=== PATIENT | male | born 1930 | race Caucasian/White ===

== ENCOUNTER 2018-10-18 17:46 | Inpatient (IN) | payer MEDICARE, MEDICAID ==
[~2018-10-18] VITALS: Ht 165.1 cm; Wt 74.8 kg
--- NOTE | 2018-10-18 17:50 | NUR ---
PT BIB [facility]IVATE [facility] TO ER BED 16. HERE FOR [facility] ADMISSION. ALREADY ON A 5150 FOR GD AND DTO. PER REPORT, PT IS REFUSING HIS MEDICATION AND IS THROWING STUFFS AT STAFF. VSS. VIETNAMESE SPEAKING. STABLE VITALS. AWAITING MD CROWLEY.
--- NOTE | 2018-10-18 18:40 | NUR ---
DR TORIBIO AT BEDSIDE FOR EVAL.
--- NOTE | 2018-10-18 18:47 | NUR ---
REAL ESTATE ADMINISTRATOR AT BEDSIDE FOR BLOOD DRAW.
--- NOTE | 2018-10-18 18:50 | NUR ---
PT UNABLE TO PROVIDE URINE SAMPLE AT THIS TIME.
[2018-10-18 18:53] LABS: HEMATOCRIT 25 % (39-51); LYMPHOCYTES # (AUTO) 1.2 /CMM (0.8-4.8)
[2018-10-18 18:56] LABS: BASOPHILS % (AUTO) 0.4 % (0.0-2.0); EOSINOPHILS % (AUTO) 1.3 % (0.0-6.0); MEAN CORPUSCULAR HGB CONC 32 g/dl (31.0-36.0); MEAN CORPUSCULAR VOLUME 78 fL (80-96); MONOCYTES % (AUTO) 12.5 % (2.0-12.0); NEUTROPHILS # (AUTO) 5.7 /CMM (1.8-8.9); NEUTROPHILS % (AUTO) 70.8 % (43.0-81.0); PLATELET COUNT (AUTO) 450 /CMM (150-450); RED BLOOD CELL COUNT(AUTO) 3.24 MIL/uL (4.5-6.0)
[2018-10-18 19:01] LABS: CALCIUM, SERUM 8.4 mg/dL (8.5-10.1); CARBON DIOXIDE 25 mmol/L (21-32); CHLORIDE 107 mmol/L (98-107); CREATININE 1.4 mg/dL (0.6-1.3); GLUCOSE 123 mg/dL (74-106); POTASSIUM 4.6 mmol/L (3.5-5.1); SODIUM SERUM 138 mmol/L (136-145); UREA NITROGEN, BLOOD 35 mg/dL (7-18)
[2018-10-18 19:08] LABS: ALANINE AMINOTRANSFERASE 15 U/L (12-78); ALBUMIN 2.9 g/dL (3.4-5.0); ALCOHOL, BLOOD < 3 mg/dL (0-0); ALKALINE PHOSPHATASE 85 U/L (46-116); ASPARTATE AMINOTRANSFERASE 13 U/L (15-37); BILIRUBIN,TOTAL 0.1 mg/dL (0.2-1.0)
[2018-10-18 19:09] LABS: ACETAMINOPHEN 0 ug/ml (10-30); SALICYLATE 1.6 mg/dL (2.8-20.0)
[2018-10-18 19:25] LABS: APPEARANCE,URINE Clear (CLEAR); BILIRUBIN,URINE Negative (NEGATIVE); BLOOD, URINE Negative Ery/uL (NEGATIVE); COLOR,URINE Yellow (YELLOW); KETONES,URINE Negative (NEGATIVE); LEUKOCYTE ESTERASE ,URINE Negative (NEGATIVE); NITRITE, URINE Negative (NEGATIVE); PH,URINE 5.5 (5.0-8.0); PROTEIN,URINE Trace mg/dl (NEGATIVE); UGLUCOSE Negative (NEGATIVE); UROBILINOGEN,URINE 0.2 EU/dL (0.2)
[2018-10-18 19:29] LABS: BAND % (MANUAL) 19 % (0.0-5.0); LYMPHOCYTES % (MANUAL) 17 % (16-48); MONOCYTES % (MANUAL) 14 % (0-11.0); NEUTROPHILS % (MANUAL) 50 (42-76)
--- NOTE | 2018-10-18 19:29 | NUR ---
REPORT GIVEN TO YESSI CHÁVEZ FOR PRIMO.
[2018-10-18 19:39] LABS: BACTERIA,URINE Rare /HPF (None Seen); RBC,URINE 0-2 /HPF (0-2); SQUAMOUS EPITHELIAL CELL,UR Few /HPF (None Seen); WBC,URINE 0-2 /HPF (0-3)
--- NOTE | 2018-10-18 20:11 | NUR ---
Pt is assigned to 220-A.
--- NOTE | 2018-10-18 21:11 | NUR ---
REPORT GIVEN TO NURSE SALAS ON BEHALF OF PRIMARY NURSE YESSI.
--- NOTE | 2018-10-18 21:15 | NUR ---
GPS/RN-NOTES ADMITTED AN 88-Y/O MALE FROM [facility]. ADMITTED ON 5150 FOR DTS/GD. PER HOLD PATIENT HAS BEEN ACTING OUT AGGRESSIVELY, THROWING OBJECTS AND VERBALLY ABUSIVE TOWARDS STAFF AND REFUSING TO COOPERATE WITH CAREGIVERS. UPON FACE TO FACE ASSESSMENT, PT IS SITTING UP IN BED, AWAKE, A/OX2, CALM, COOPERATIVE WITH CARE. SPEAKS COLOMBIAN, NO APPARENT DISTRESS NOTED, DENIED SUICIDE IDEATIONS AND HOMICIDAL IDEATIONS AT THIS TIME. PATIENT COMPLAINS OF PAIN ON BILATERAL KNEES, 3/10 AND REQUESTED FOR ACETAMINOPHEN. TYLENOL GIVEN ORDERED. PATIENT IS UNDER THE PSYCHIATRIC CARE OF DR. SWEENEY AND MEDICAL CARE OF SAAD RIDER. MED RECON DONE. PATIENT BELONGINGS WERE INVENTORIED AND CHECKED FOR CONTRABAND. SKIN ASSESSMENT DONE. SKIN INTACT. PATIENT EDUCATED ON THE USE OF THE CALL GEORGE, VERBALIZED UNDERSTANDING. ALL NEEDS ATTENDED AND MET. KEPT COMFORTABLE. SAFETY AND FALL PRECAUTIONS IMPLEMENTED AND OBSERVED. WILL CONTINUE TO MONITOR CLOSELY FOR PATIENT'S SAFETY AND BEHAVIOR.
[2018-10-18 21:30] VITALS: BP 155/84
[2018-10-18] MEDS ORDERED: MAG HYDROX/AL HYDROX/SIMETH 30 ML UDC PO PRN (22:00)
[2018-10-18] MEDS ORDERED: MAGNESIUM HYDROXIDE 30 ML UDC PO PRN (22:00)
[2018-10-18] MEDS ORDERED: TEMAZEPAM 7.5 MG CAPSULE PO PRN (22:00)
[2018-10-18] MEDS ORDERED: DEXT15DR6 EACHEYE (22:02)
[2018-10-18] MEDS: ACETAMINOPHEN 325 MG TABLET PO PRN (22:10)
[2018-10-18] MEDS ORDERED: DIVA500T2 PO (22:12)
[2018-10-18] MEDS ORDERED: DOCU100C36 PO (22:13)
[2018-10-18] MEDS ORDERED: FAMO20TA8 PO (22:15)
[2018-10-18] MEDS ORDERED: FERR325T23 PO (22:18)
[2018-10-18] MEDS ORDERED: MELA3TAB PO (22:20)
[2018-10-18] MEDS ORDERED: METO-356 PO (22:21)
[2018-10-18] MEDS: LORAZEPAM 0.5 MG TABLET PO PRN (22:23)
[2018-10-18] MEDS ORDERED: MULT1TAB73 PO (22:24)
[2018-10-18] MEDS ORDERED: THIA500T PO (22:29)
[2018-10-18] MEDS ORDERED: CHOL200026 PO (22:39)
[2018-10-18] MEDS ORDERED: OLAN2.5T3 PO ×2 (22:41→22:43)
[2018-10-19 07:43] LABS: CREATININE 1.4 mg/dL (0.6-1.3)
[2018-10-19 08:00] VITALS: BP 124/64
[2018-10-19] MEDS: MULTIVITAMINS,THERAGRAN 1 UDTAB TABLET PO SCH (08:52)
[2018-10-19] MEDS: FAMOTIDINE (20 MG) 20 MG TABLET PO SCH (08:52)
[2018-10-19] MEDS: FERROUS SULFATE (325 MG) 325 MG/TAB TABLET PO SCH ×3 (08:52→16:25)
[2018-10-19] MEDS: DIVALPROEX SODIUM 500 MG TABLET.DR PO SCH ×3 (08:52→17:14)
[2018-10-19] MEDS: THIAMINE HCL 100 MG TABLET PO SCH (08:52)
[2018-10-19] MEDS: METOPROLOL SUCCINATE 25 MG TAB.SR.24H PO SCH (08:52)
[2018-10-19] MEDS: DOCUSATE SODIUM 100 MG CAPSULE PO SCH (08:52)
[2018-10-19] MEDS: POLYVINYL ALCOHOL 15 ML BOTTLE EACHEYE SCH ×3 (08:54→16:28)
--- NOTE | 2018-10-19 09:53 | NUR ---
STU conducted the pt's psychosocial assessment with a Greek speaking SPRAYER OPERATOR present, Susie, because the pt is Greek speaking only and Susie translated for the SW and the pt.
--- NOTE | 2018-10-19 09:54 | NUR ---
STU called the pt's daughter, Isabela ([phone]), and discussed the pt's initial discharge plan. She stated that she is unsure if she wants the pt to return to [facility] and stated that the best facility the pt was ever in was [facility]. She stated that she would prefer if the pt could be admitted there.
[2018-10-19 10:54] LABS: CHOLESTEROL 113 mg/dL (<200); HDL CHOLESTEROL 32 mg/dL (40-60); LDL 67 mg/dL (0-99); TRIGLYCERIDES 115 mg/dL (30-150)
--- NOTE | 2018-10-19 14:30 | NUR ---
Initial Discharge Plan: Pt currently resides at [facility] located at [address] [place] [address]; ([phone]). Per pt, he was disoriented and was unable to state whether or not he wants to return. Pt's daughter, Isabela ([phone]), stated that she preferred [facility]. SW will work with the pt, the family, and the MD regarding appropriate discharge planning. SW will form a safe and proper discharge.
[2018-10-19 16:00] VITALS: BP 124/63
--- NOTE | 2018-10-19 19:29 | NUR ---
RECEIVED AWAKE, ALERT, INTERACTS WHEN ENGAGED, NO AGGRESSIVE BEHAVIOR NOTED. CALM, COOPERATIVE. GOOD MOOD. WILL CONTINUE TO MOITOR Q 15 MINS. TO MAINTAIN SAFETY.
[2018-10-19 20:00] VITALS: BP 153/60
[2018-10-19] MEDS: LORAZEPAM 0.5 MG TABLET PO PRN (20:17)
[2018-10-19] MEDS: QUETIAPINE FUMARATE 25 MG TABLET PO SCH (22:03)
[2018-10-20 07:02] LABS: BASOPHILS % (AUTO) 0.5 % (0.0-2.0); EOSINOPHILS % (AUTO) 3.4 % (0.0-6.0); HEMATOCRIT 24 % (39-51); HEMOGLOBIN 7.4 g/dL (13.5-17.5); LYMPHOCYTES # (AUTO) 2.7 /CMM (0.8-4.8); LYMPHOCYTES % (AUTO) 33.4 % (20.0-44.0); MEAN CORPUSCULAR HGB CONC 32 g/dl (31.0-36.0); MEAN CORPUSCULAR VOLUME 77 fL (80-96); MONOCYTES # (AUTO) 1.1 /CMM (0.1-1.30); MONOCYTES % (AUTO) 13.4 % (2.0-12.0); NEUTROPHILS % (AUTO) 49.3 % (43.0-81.0); PLATELET COUNT (AUTO) 396 /CMM (150-450); RED BLOOD CELL COUNT(AUTO) 3.04 MIL/uL (4.5-6.0); WHITE BLOOD COUNT (AUTO) 8.1 K/uL (4.3-11.0)
[2018-10-20] MEDS: FAMOTIDINE (20 MG) 20 MG TABLET PO SCH (07:40)
[2018-10-20 07:43] LABS: ALANINE AMINOTRANSFERASE 12 U/L (12-78); ALBUMIN 2.4 g/dL (3.4-5.0); ALKALINE PHOSPHATASE 63 U/L (46-116); ASPARTATE AMINOTRANSFERASE 15 U/L (15-37); BILIRUBIN,TOTAL 0.2 mg/dL (0.2-1.0); CALCIUM, SERUM 8.3 mg/dL (8.5-10.1); CARBON DIOXIDE 20 mmol/L (21-32); CHLORIDE 111 mmol/L (98-107); CREATININE 1.2 mg/dL (0.6-1.3); GLUCOSE 85 mg/dL (74-106); POTASSIUM 4.3 mmol/L (3.5-5.1); SODIUM SERUM 142 mmol/L (136-145); TOTAL PROTEIN, SERUM 6.2 g/dL (6.4-8.2); UREA NITROGEN, BLOOD 26 mg/dL (7-18)
[2018-10-20 08:00] VITALS: BP 129/59
[2018-10-20] MEDS: POLYVINYL ALCOHOL 15 ML BOTTLE EACHEYE SCH ×3 (08:02→17:00)
[2018-10-20] MEDS: THIAMINE HCL 100 MG TABLET PO SCH (08:02)
[2018-10-20] MEDS: DIVALPROEX SODIUM 500 MG TABLET.DR PO SCH ×3 (08:02→17:11)
[2018-10-20] MEDS: FERROUS SULFATE (325 MG) 325 MG/TAB TABLET PO SCH ×3 (08:02→17:11)
[2018-10-20] MEDS: MULTIVITAMINS,THERAGRAN 1 UDTAB TABLET PO SCH (08:02)
[2018-10-20] MEDS: DOCUSATE SODIUM 100 MG CAPSULE PO SCH (08:02)
[2018-10-20] MEDS: METOPROLOL SUCCINATE 25 MG TAB.SR.24H PO SCH (08:06)
[2018-10-20] MEDS: CHOLECALCIFEROL 1,000 UNIT TABLET (VIT D3) PO SCH (08:07)
[2018-10-20] MEDS: QUETIAPINE FUMARATE 25 MG TABLET PO SCH ×3 (08:11→22:00)
[2018-10-20] MEDS: ACETAMINOPHEN 325 MG TABLET PO PRN (10:41)
--- NOTE | 2018-10-20 12:03 | NUR ---
GPS NOTES PATIENT BROUGHT TO RADIOLOGY VIA WHEELCHAIR FOR CHEST X-RAY AND CT OF HEAD W/O CONTRAST. WILL F/U RESULTS
--- NOTE | 2018-10-20 14:00 | NUR ---
GPS NOTES RESULTS OF CHEST X-RAY SHOWS RIGHT BASILAR PNA WITH PERHAPS A SMALL LEFT BASILAR INFILTRATE AND EFFUSION. CALLED [facility] FOR DR LOUIS, AWAITING FOR CALL BACK.
[2018-10-20 15:56] VITALS: BP 113/64
--- NOTE | 2018-10-20 16:03 | NUR ---
RN NOTES CALLED [facility] AGAIN AT 1600 AND SPOKE TO STRAIGHT EDGER GAIL. DR LOUIS CALLED AND INFORMED CHEST X-RAY RESULTS (PNA) AND LOW HGB 7.[address] LOUIS SAID THAT SHE WILL LOOK PT'S RESULTS ON THE COMPUTER AND WILL TAKE CARE OF IT. WILL CONTINUE TO MONITOR
[2018-10-20] MEDS: AMOX/CLAVULANATE 875 MG TABLET PO SCH (17:11)
--- NOTE | 2018-10-20 17:13 | NUR ---
GPS/RN NOTES DR LOUIS ORDERED ABT AUGMENTIN 875/125MG TAB Q 12HRS FOR PNA AND STARTED. PT FOR STOOL SPECIMEN COLLECTION FOR OCCULT BLOOD AND FOR BMP, CBC, IRON,MG AND PHOSPHORUS TOMORROW MORNING AT 0500. WILL ENDORSE TO LICENSED PHARMACIST NURSE. AND CONTINUE TO MONITOR PT'S STATUS ACCORDINGLY.
[2018-10-20 20:14] VITALS: BP 150/76
[2018-10-20] MEDS: LORAZEPAM 0.5 MG TABLET PO PRN (20:44)
--- NOTE | 2018-10-20 20:45 | NUR ---
ATIVAN 0.5 MG TAB PO GIVEN FOR ANXIETY.
--- NOTE | 2018-10-20 21:25 | NUR ---
PATIENT REFUSED NIGHT MEDICATION, OFFERED X2, STILL REFUSED.
--- NOTE | 2018-10-21 06:07 | NUR ---
NO BOWEL MOVEMENT DURING THE SHIFT, WILL ENDORSE FOR FOLLOW-UP.
--- NOTE | 2018-10-21 06:13 | NUR ---
REFUSED BLOOD DRAW. WILL COME BACK LATER.
[2018-10-21 08:00] VITALS: BP 145/59
[2018-10-21] MEDS: DIVALPROEX SODIUM 500 MG TABLET.DR PO SCH ×5 (08:00→18:00)
[2018-10-21] MEDS: FAMOTIDINE (20 MG) 20 MG TABLET PO SCH ×2 (08:58→11:54)
[2018-10-21] MEDS: AMOX/CLAVULANATE 875 MG TABLET PO SCH ×3 (08:58→21:00)
[2018-10-21] MEDS: THIAMINE HCL 100 MG TABLET PO SCH ×2 (08:58→11:52)
[2018-10-21] MEDS: FERROUS SULFATE (325 MG) 325 MG/TAB TABLET PO SCH ×5 (08:58→17:00)
[2018-10-21] MEDS: METOPROLOL SUCCINATE 25 MG TAB.SR.24H PO SCH ×2 (08:59→12:02)
[2018-10-21] MEDS: MULTIVITAMINS,THERAGRAN 1 UDTAB TABLET PO SCH ×2 (08:59→11:52)
[2018-10-21] MEDS: DOCUSATE SODIUM 100 MG CAPSULE PO SCH ×2 (08:59→11:52)
[2018-10-21] MEDS: POLYVINYL ALCOHOL 15 ML BOTTLE EACHEYE SCH ×4 (08:59→17:00)
[2018-10-21] MEDS: QUETIAPINE FUMARATE 25 MG TABLET PO SCH ×3 (09:00→21:07)
--- NOTE | 2018-10-21 09:39 | NUR ---
REFUSING AM MEDS,REFUSING AM LAB DRAW AT THIS TIME.
[2018-10-21] MEDS: ACETAMINOPHEN 325 MG TABLET PO PRN (09:45)
--- NOTE | 2018-10-21 09:46 | NUR ---
MEDICATED WITH TYLENOL FOR PAIN IN KNEES.
--- NOTE | 2018-10-21 11:30 | NUR ---
CALL OUT TO PT'S2 DAUGHTERS VIKA AND CHICO REGARDING PT STATUS,LEFT MESSAGES ON BOTH DTR'S CELL PHONES.
--- NOTE | 2018-10-21 11:45 | NUR ---
RETURN CALL FROM ESTEVAN ,STATES SHE WILL BE IN TO SEE PT. MEANWHILE PT ALLOWED LAB DRAW.HIRAL JOHNSON AT BEDSIDE.
--- NOTE | 2018-10-21 12:30 | NUR ---
AM MEDS CRUSHED AND ADDED TO CHOCOLATE PUDDING,BUT PT. STILL REFUSING MEDS,STATES HE WILL ONLY TAKE TYLENOL
[2018-10-21 12:45] LABS: BASOPHILS % (AUTO) 0.3 % (0.0-2.0); EOSINOPHILS % (AUTO) 2.1 % (0.0-6.0); HEMATOCRIT 25 % (39-51); LYMPHOCYTES # (AUTO) 2.3 /CMM (0.8-4.8); LYMPHOCYTES % (AUTO) 32.8 % (20.0-44.0); MEAN CORPUSCULAR HGB CONC 32 g/dl (31.0-36.0); MEAN CORPUSCULAR VOLUME 77 fL (80-96); MONOCYTES # (AUTO) 0.8 /CMM (0.1-1.30); MONOCYTES % (AUTO) 11.7 % (2.0-12.0); NEUTROPHILS # (AUTO) 3.7 /CMM (1.8-8.9); NEUTROPHILS % (AUTO) 53.1 % (43.0-81.0); PLATELET COUNT (AUTO) 428 /CMM (150-450); RED BLOOD CELL COUNT(AUTO) 3.25 MIL/uL (4.5-6.0); WHITE BLOOD COUNT (AUTO) 6.9 K/uL (4.3-11.0)
[2018-10-21 12:58] LABS: CALCIUM, SERUM 8.5 mg/dL (8.5-10.1); CARBON DIOXIDE 21 mmol/L (21-32); CHLORIDE 109 mmol/L (98-107); CREATININE 1.2 mg/dL (0.6-1.3); GLUCOSE 96 mg/dL (74-106); MAGNESIUM 2.1 mg/dL (1.8-2.4); PHOSPHORUS 3.9 mg/dL (2.5-4.9); POTASSIUM 4.5 mmol/L (3.5-5.1); SODIUM SERUM 142 mmol/L (136-145); UREA NITROGEN, BLOOD 23 mg/dL (7-18)
[2018-10-21 13:10] LABS: IRON, SERUM 13 ug/dl (50-175); TOTAL IRON BINDING CAPACITY 255 ug/dl (250-450)
[2018-10-21 15:45] VITALS: BP 117/65
--- NOTE | 2018-10-21 19:59 | NUR ---
FAMILY AT THE BEDSIDE, DAUGHTER SSAID IT IS OKAY TO GIVE HER FATHER'S MEDICATION AT THIS TIME. PULLED OUT NIGHT MEDS, OFFERED X2, PATIENT REFUSED, WET PRIMER POWDER BLENDER MADE AWARE.
[2018-10-21 20:00] VITALS: BP 143/79
--- NOTE | 2018-10-21 20:06 | NUR ---
C/O PAIN ON HIS KNEES, TYLENOL 650 MG TAB PO GIVEN.
[2018-10-22 08:00] VITALS: BP 145/67
[2018-10-22] MEDS: POLYVINYL ALCOHOL 15 ML BOTTLE EACHEYE SCH ×3 (09:00→17:00)
[2018-10-22] MEDS: FERROUS SULFATE (325 MG) 325 MG/TAB TABLET PO SCH ×3 (10:43→17:38)
[2018-10-22] MEDS: AMOX/CLAVULANATE 875 MG TABLET PO SCH ×2 (10:44→21:02)
[2018-10-22] MEDS: MULTIVITAMINS,THERAGRAN 1 UDTAB TABLET PO SCH (10:44)
[2018-10-22] MEDS: DOCUSATE SODIUM 100 MG CAPSULE PO SCH (10:44)
[2018-10-22] MEDS: DIVALPROEX SODIUM 500 MG TABLET.DR PO SCH ×3 (10:44→17:38)
[2018-10-22] MEDS: FAMOTIDINE (20 MG) 20 MG TABLET PO SCH (10:44)
[2018-10-22] MEDS: QUETIAPINE FUMARATE 25 MG TABLET PO SCH ×2 (10:44→21:02)
[2018-10-22] MEDS: THIAMINE HCL 100 MG TABLET PO SCH (10:44)
[2018-10-22] MEDS: METOPROLOL SUCCINATE 25 MG TAB.SR.24H PO SCH (10:45)
[2018-10-22 16:00] VITALS: BP 135/54
[2018-10-22 20:01] VITALS: BP 109/40
[2018-10-23 08:00] VITALS: BP 147/75
[2018-10-23] MEDS: DIVALPROEX SODIUM 500 MG TABLET.DR PO SCH ×3 (08:03→17:08)
[2018-10-23] MEDS: QUETIAPINE FUMARATE 25 MG TABLET PO SCH ×2 (08:03→21:32)
[2018-10-23] MEDS: FAMOTIDINE (20 MG) 20 MG TABLET PO SCH (08:03)
[2018-10-23] MEDS: FERROUS SULFATE (325 MG) 325 MG/TAB TABLET PO SCH ×3 (08:03→16:18)
[2018-10-23] MEDS: AMOX/CLAVULANATE 875 MG TABLET PO SCH ×2 (08:03→21:32)
[2018-10-23] MEDS: THIAMINE HCL 100 MG TABLET PO SCH (08:03)
[2018-10-23] MEDS: DOCUSATE SODIUM 100 MG CAPSULE PO SCH (08:03)
[2018-10-23] MEDS: MULTIVITAMINS,THERAGRAN 1 UDTAB TABLET PO SCH (08:03)
[2018-10-23] MEDS: METOPROLOL SUCCINATE 25 MG TAB.SR.24H PO SCH (08:04)
[2018-10-23] MEDS: POLYVINYL ALCOHOL 15 ML BOTTLE EACHEYE SCH ×4 (08:21→16:18)
--- NOTE | 2018-10-23 14:05 | NUR ---
STU called the pt's daughter, Isabela ([phone]), and informed her that the SW will be discussing the [facility] option for placement with Dr. Spann when she comes in.
--- NOTE | 2018-10-23 14:06 | NUR ---
STU called [facility] ([phone]) and talked to Liya who stated that the pt can return to the facility and made a note that today is the pt's 5th day of the bed hold. STU stated that once she speaks to Dr. Spann and gets a tentative discharge date, she will be calling back and will inform them when the pt is being discharged.
[2018-10-23 16:00] VITALS: BP 130/70
[2018-10-23 19:43] VITALS: BP 112/47
[2018-10-24 08:00] VITALS: BP 114/68
[2018-10-24] MEDS: DIVALPROEX SODIUM 500 MG TABLET.DR PO SCH ×3 (08:04→17:27)
[2018-10-24] MEDS: FAMOTIDINE (20 MG) 20 MG TABLET PO SCH (08:04)
[2018-10-24 08:40] VITALS: BP 114/58
[2018-10-24] MEDS: MULTIVITAMINS,THERAGRAN 1 UDTAB TABLET PO SCH (09:01)
[2018-10-24] MEDS: METOPROLOL SUCCINATE 25 MG TAB.SR.24H PO SCH (09:01)
[2018-10-24] MEDS: FERROUS SULFATE (325 MG) 325 MG/TAB TABLET PO SCH ×3 (09:01→16:42)
[2018-10-24] MEDS: THIAMINE HCL 100 MG TABLET PO SCH (09:01)
[2018-10-24] MEDS: DOCUSATE SODIUM 100 MG CAPSULE PO SCH (09:01)
[2018-10-24] MEDS: AMOX/CLAVULANATE 875 MG TABLET PO SCH ×2 (09:01→21:19)
[2018-10-24] MEDS: POLYVINYL ALCOHOL 15 ML BOTTLE EACHEYE SCH ×3 (09:02→16:44)
[2018-10-24] MEDS: QUETIAPINE FUMARATE 25 MG TABLET PO SCH (09:41)
--- NOTE | 2018-10-24 12:56 | NUR ---
STU faxed a referral to [facility] (with attention to Marya) to the fax number: [phone].
--- NOTE | 2018-10-24 13:01 | NUR ---
SW called the pt's daughter, Isabela ([phone]), and informed her that the SW sent a referral to [facility] today and will be waiting for an update. The SW stated that as soon as she has an update she will be giving the pt's daughter a call back.
[2018-10-24 15:52] VITALS: BP 118/64
[2018-10-24 20:02] VITALS: BP_SYST 114; BP_SYST 132; BP_DIAS 57; BP_DIAS 58
[2018-10-24] MEDS: OLANZAPINE 2.5 MG TABLET PO SCH (21:19)
[2018-10-24] MEDS: DONEPEZIL 5 MG TABLET PO SCH (21:19)
[2018-10-25] MEDS: ACETAMINOPHEN 325 MG TABLET PO PRN (03:37)
--- NOTE | 2018-10-25 03:50 | NUR ---
gps rn notes: patient reported to nurse that he has bloody stool, of little amount. instructed patient not to flush it the next time he will have to remove bowels. he asked for pain medication for stomach pain, given tylenol 650mg po. will continue to monitor patient.
[2018-10-25 07:53] LABS: BASOPHILS % (AUTO) 0.5 % (0.0-2.0); EOSINOPHILS % (AUTO) 3.2 % (0.0-6.0); HEMATOCRIT 27 % (39-51); HEMOGLOBIN 8.5 g/dL (13.5-17.5); LYMPHOCYTES # (AUTO) 2.8 /CMM (0.8-4.8); LYMPHOCYTES % (AUTO) 36.3 % (20.0-44.0); MEAN CORPUSCULAR HGB CONC 32 g/dl (31.0-36.0); MEAN CORPUSCULAR VOLUME 77 fL (80-96); MONOCYTES # (AUTO) 0.8 /CMM (0.1-1.30); MONOCYTES % (AUTO) 10.7 % (2.0-12.0); NEUTROPHILS # (AUTO) 3.8 /CMM (1.8-8.9); NEUTROPHILS % (AUTO) 49.3 % (43.0-81.0); PLATELET COUNT (AUTO) 469 /CMM (150-450); RED BLOOD CELL COUNT(AUTO) 3.47 MIL/uL (4.5-6.0); WHITE BLOOD COUNT (AUTO) 7.7 K/uL (4.3-11.0)
[2018-10-25 08:00] VITALS: BP 125/55
[2018-10-25 08:03] LABS: CALCIUM, SERUM 8.9 mg/dL (8.5-10.1); CARBON DIOXIDE 22 mmol/L (21-32); CHLORIDE 108 mmol/L (98-107); CREATININE 1.4 mg/dL (0.6-1.3); GLUCOSE 91 mg/dL (74-106); POTASSIUM 4.3 mmol/L (3.5-5.1); SODIUM SERUM 141 mmol/L (136-145); UREA NITROGEN, BLOOD 34 mg/dL (7-18)
[2018-10-25] MEDS: DIVALPROEX SODIUM 500 MG TABLET.DR PO SCH ×3 (08:27→17:16)
[2018-10-25] MEDS: OLANZAPINE 2.5 MG TABLET PO SCH ×2 (08:27→20:51)
[2018-10-25] MEDS: AMOX/CLAVULANATE 875 MG TABLET PO SCH (08:27)
[2018-10-25] MEDS: FERROUS SULFATE (325 MG) 325 MG/TAB TABLET PO SCH ×3 (08:27→17:16)
[2018-10-25] MEDS: FAMOTIDINE (20 MG) 20 MG TABLET PO SCH (08:28)
[2018-10-25] MEDS: MULTIVITAMINS,THERAGRAN 1 UDTAB TABLET PO SCH (08:28)
[2018-10-25] MEDS: POLYVINYL ALCOHOL 15 ML BOTTLE EACHEYE SCH ×3 (08:28→17:00)
[2018-10-25] MEDS: DOCUSATE SODIUM 100 MG CAPSULE PO SCH (08:28)
[2018-10-25] MEDS: THIAMINE HCL 100 MG TABLET PO SCH (08:28)
[2018-10-25] MEDS: METOPROLOL SUCCINATE 25 MG TAB.SR.24H PO SCH (08:28)
[2018-10-25 16:00] VITALS: BP 134/61
--- NOTE | 2018-10-25 16:06 | NUR ---
STU contacted Marya ([phone]) from [facility] to follow up on the referral that was sent yesterday for the pt and she stated that the hyperion analyst is currently reviewing it.
[2018-10-25 20:00] VITALS: BP 132/50
[2018-10-25 20:05] VITALS: BP 132/50
[2018-10-25] MEDS: DONEPEZIL 5 MG TABLET PO SCH (21:37)
[2018-10-26 08:00] VITALS: BP 160/77
[2018-10-26] MEDS: MULTIVITAMINS,THERAGRAN 1 UDTAB TABLET PO SCH (08:46)
[2018-10-26] MEDS: FAMOTIDINE (20 MG) 20 MG TABLET PO SCH (08:46)
[2018-10-26] MEDS: DIVALPROEX SODIUM 500 MG TABLET.DR PO SCH ×3 (08:46→17:06)
[2018-10-26] MEDS: OLANZAPINE 2.5 MG TABLET PO SCH ×2 (08:46→21:00)
[2018-10-26] MEDS: DOCUSATE SODIUM 100 MG CAPSULE PO SCH (08:46)
[2018-10-26] MEDS: FERROUS SULFATE (325 MG) 325 MG/TAB TABLET PO SCH ×3 (08:46→17:06)
[2018-10-26] MEDS: THIAMINE HCL 100 MG TABLET PO SCH (08:46)
[2018-10-26] MEDS: METOPROLOL SUCCINATE 25 MG TAB.SR.24H PO SCH ×2 (08:47→08:56)
[2018-10-26] MEDS: POLYVINYL ALCOHOL 15 ML BOTTLE EACHEYE SCH ×3 (09:20→17:08)
[2018-10-26] MEDS ORDERED: LEVOFLOXACIN (750 MG) 750 MG TABLET PO SCH (13:00)
[2018-10-26] MEDS: LEVOFLOXACIN (750 MG) 750 MG TABLET PO SCH (13:33)
--- NOTE | 2018-10-26 15:34 | NUR ---
Marya ([phone]) from [facility] contacted the and stated that the pt was denied acceptance due to a lack of need for a locked facility. She stated that they have sister facilities that would be willing to take the pt.
--- NOTE | 2018-10-26 15:38 | NUR ---
STU called the pt's daughter, Isabela ([phone]), and informed her that [facility] cannot accommodate the pt but they are recommending [facility]. The pt's daughter stated that she would look into it.
--- NOTE | 2018-10-26 15:40 | NUR ---
SW called [facility] ([phone]) and spoke to Liya who stated that she would hold the bed for the pt throughout the weekend and we can discuss the discharge on Tuesday when the SW will ask the psychiatrist for a discharge date.
--- NOTE | 2018-10-26 15:41 | NUR ---
SW called the pt's daughter, Isabela ([phone]), and informed her that the pt's bed at [facility] will be held throughout the weekend and the SW will work on getting a discharge date to inform the facility about.
[2018-10-26 15:58] VITALS: BP 110/58
[2018-10-26 20:00] VITALS: BP 128/55
[2018-10-26] MEDS: DONEPEZIL 5 MG TABLET PO SCH (21:59)
[2018-10-27 08:00] VITALS: BP 140/90
[2018-10-27] MEDS: DOCUSATE SODIUM 100 MG CAPSULE PO SCH (08:25)
[2018-10-27] MEDS: THIAMINE HCL 100 MG TABLET PO SCH (08:26)
[2018-10-27] MEDS: FAMOTIDINE (20 MG) 20 MG TABLET PO SCH (08:26)
[2018-10-27] MEDS: FERROUS SULFATE (325 MG) 325 MG/TAB TABLET PO SCH ×3 (08:26→17:35)
[2018-10-27] MEDS: OLANZAPINE 2.5 MG TABLET PO SCH ×3 (08:26→19:57)
[2018-10-27] MEDS: MULTIVITAMINS,THERAGRAN 1 UDTAB TABLET PO SCH (08:26)
[2018-10-27] MEDS: DIVALPROEX SODIUM 500 MG TABLET.DR PO SCH ×3 (08:26→17:35)
[2018-10-27] MEDS: METOPROLOL SUCCINATE 25 MG TAB.SR.24H PO SCH (08:28)
[2018-10-27] MEDS: POLYVINYL ALCOHOL 15 ML BOTTLE EACHEYE SCH ×3 (08:31→17:37)
[2018-10-27] MEDS: CHOLECALCIFEROL 1,000 UNIT TABLET (VIT D3) PO SCH (08:31)
--- NOTE | 2018-10-27 13:38 | NUR ---
STU called the pt's daughter, Isabela ([phone]), and informed her that the tentative discharge date for the pt is Tuesday.
--- NOTE | 2018-10-27 15:19 | NUR ---
STU called [facility] ([phone]) and spoke to Liya who stated that she would hold the bed for the pt for Tuesday.
[2018-10-27 16:00] VITALS: BP 158/68
[2018-10-27] MEDS: LORAZEPAM 0.5 MG TABLET PO PRN (19:57)
[2018-10-27] MEDS: DONEPEZIL 5 MG TABLET PO SCH (19:57)
--- NOTE | 2018-10-27 19:58 | NUR ---
DAUGHTER VIKA DE LA CRUZ, NOTIFIED, HER FATHER REFUSED HIS MEDICATION LAST NIGHT. ASKED HER IF I CAN GIVE THE MEDICATIONS AT THIS TIME, AND SHE SAID OKAY. OLANZAPINE 1.25 MG , DONEPEZIL 5 MG TAB PO GIVEN. ALSO, ATIVAN 0.5 MG TAB PO GIVEN FOR SLEEP/ANXIETY.
[2018-10-27 20:00] VITALS: BP 150/67
[2018-10-27] MEDS ORDERED: OLANZAPINE 2.5 MG TABLET PO SCH (20:00)
[2018-10-28 08:00] VITALS: BP 120/53
[2018-10-28] MEDS: MULTIVITAMINS,THERAGRAN 1 UDTAB TABLET PO SCH (08:47)
[2018-10-28] MEDS: FAMOTIDINE (20 MG) 20 MG TABLET PO SCH (08:47)
[2018-10-28] MEDS: DIVALPROEX SODIUM 500 MG TABLET.DR PO SCH ×3 (08:47→17:44)
[2018-10-28] MEDS: THIAMINE HCL 100 MG TABLET PO SCH (08:48)
[2018-10-28] MEDS: METOPROLOL SUCCINATE 25 MG TAB.SR.24H PO SCH (08:48)
[2018-10-28] MEDS: DOCUSATE SODIUM 100 MG CAPSULE PO SCH (08:48)
[2018-10-28] MEDS: OLANZAPINE 2.5 MG TABLET PO SCH ×3 (08:49→20:53)
[2018-10-28] MEDS: CHOLECALCIFEROL 1,000 UNIT TABLET (VIT D3) PO SCH (08:49)
[2018-10-28] MEDS: FERROUS SULFATE (325 MG) 325 MG/TAB TABLET PO SCH ×3 (08:49→17:44)
[2018-10-28] MEDS: POLYVINYL ALCOHOL 15 ML BOTTLE EACHEYE SCH ×4 (08:51→16:31)
[2018-10-28] MEDS: LEVOFLOXACIN (750 MG) 750 MG TABLET PO SCH (14:03)
[2018-10-28 16:00] VITALS: BP 125/60
--- NOTE | 2018-10-28 16:54 | NUR ---
keeping to self most of day in rm. in to see pt. as well as dtr.pt. med compliant,but seems depressed.
[2018-10-28 20:00] VITALS: BP 126/83
[2018-10-28] MEDS: DONEPEZIL 5 MG TABLET PO SCH (20:54)
[2018-10-28] MEDS: LORAZEPAM 0.5 MG TABLET PO PRN (20:54)
--- NOTE | 2018-10-28 20:55 | NUR ---
ATIVAN 0.5 MG TAB PO GIVEN FOR ANXIETY, RESTLESS, UP AN ABOUT INSIDE HIS ROOM.
[2018-10-29 08:00] VITALS: BP 121/67
[2018-10-29] MEDS: POLYVINYL ALCOHOL 15 ML BOTTLE EACHEYE SCH ×3 (09:00→16:51)
[2018-10-29] MEDS: METOPROLOL SUCCINATE 25 MG TAB.SR.24H PO SCH (09:22)
[2018-10-29] MEDS: OLANZAPINE 2.5 MG TABLET PO SCH ×3 (09:22→21:02)
[2018-10-29] MEDS: THIAMINE HCL 100 MG TABLET PO SCH (09:23)
[2018-10-29] MEDS: DOCUSATE SODIUM 100 MG CAPSULE PO SCH (09:23)
[2018-10-29] MEDS: FERROUS SULFATE (325 MG) 325 MG/TAB TABLET PO SCH ×3 (09:23→18:09)
[2018-10-29] MEDS: MULTIVITAMINS,THERAGRAN 1 UDTAB TABLET PO SCH (09:23)
[2018-10-29] MEDS: DIVALPROEX SODIUM 500 MG TABLET.DR PO SCH ×3 (09:23→18:09)
[2018-10-29] MEDS: CHOLECALCIFEROL 1,000 UNIT TABLET (VIT D3) PO SCH (09:23)
[2018-10-29] MEDS: FAMOTIDINE (20 MG) 20 MG TABLET PO SCH (09:23)
[2018-10-29 16:00] VITALS: BP 152/70
--- NOTE | 2018-10-29 19:10 | NUR ---
CALL OUT TO [facility] X3.FINALLY SPOKE TO TITA REGARDING DIARRHEA.NO ORDERS GIVEN.
[2018-10-29 20:24] VITALS: BP 122/52
[2018-10-29] MEDS: DONEPEZIL 5 MG TABLET PO SCH (21:02)
[2018-10-30 07:21] LABS: BASOPHILS % (AUTO) 0.3 % (0.0-2.0); EOSINOPHILS % (AUTO) 3.9 % (0.0-6.0); HEMATOCRIT 25 % (39-51); HEMOGLOBIN 8.2 g/dL (13.5-17.5); LYMPHOCYTES # (AUTO) 3.3 /CMM (0.8-4.8); LYMPHOCYTES % (AUTO) 38.6 % (20.0-44.0); MEAN CORPUSCULAR HGB CONC 33 g/dl (31.0-36.0); MEAN CORPUSCULAR VOLUME 78 fL (80-96); MONOCYTES # (AUTO) 1.1 /CMM (0.1-1.30); MONOCYTES % (AUTO) 13.3 % (2.0-12.0); NEUTROPHILS # (AUTO) 3.7 /CMM (1.8-8.9); NEUTROPHILS % (AUTO) 43.9 % (43.0-81.0); PLATELET COUNT (AUTO) 451 /CMM (150-450); RED BLOOD CELL COUNT(AUTO) 3.27 MIL/uL (4.5-6.0); WHITE BLOOD COUNT (AUTO) 8.5 K/uL (4.3-11.0)
[2018-10-30 07:28] LABS: CALCIUM, SERUM 8.8 mg/dL (8.5-10.1); CARBON DIOXIDE 25 mmol/L (21-32); CHLORIDE 108 mmol/L (98-107); CREATININE 1.6 mg/dL (0.6-1.3); GLUCOSE 90 mg/dL (74-106); POTASSIUM 4.5 mmol/L (3.5-5.1); SODIUM SERUM 143 mmol/L (136-145); UREA NITROGEN, BLOOD 39 mg/dL (7-18)
[2018-10-30] MEDS: FAMOTIDINE (20 MG) 20 MG TABLET PO SCH (07:30)
[2018-10-30 08:00] VITALS: BP 111/51
[2018-10-30] MEDS: OLANZAPINE 2.5 MG TABLET PO SCH ×3 (08:00→22:44)
[2018-10-30] MEDS: DIVALPROEX SODIUM 500 MG TABLET.DR PO SCH ×3 (08:00→17:01)
[2018-10-30] MEDS: POLYVINYL ALCOHOL 15 ML BOTTLE EACHEYE SCH ×3 (09:00→16:58)
[2018-10-30] MEDS: THIAMINE HCL 100 MG TABLET PO SCH (09:00)
[2018-10-30] MEDS: MULTIVITAMINS,THERAGRAN 1 UDTAB TABLET PO SCH (09:00)
[2018-10-30] MEDS: DOCUSATE SODIUM 100 MG CAPSULE PO SCH (09:00)
[2018-10-30] MEDS: METOPROLOL SUCCINATE 25 MG TAB.SR.24H PO SCH (09:00)
[2018-10-30] MEDS: FERROUS SULFATE (325 MG) 325 MG/TAB TABLET PO SCH ×3 (10:19→16:58)
--- NOTE | 2018-10-30 12:24 | NUR ---
SW called [facility] ([phone]) and left a voicemail for Liya, review scheduling coordinator, asking if we can confirm that there is a bed available for the pt.
[2018-10-30] MEDS: LEVOFLOXACIN (750 MG) 750 MG TABLET PO SCH (13:05)
[2018-10-30 16:00] VITALS: BP 157/82
--- NOTE | 2018-10-30 20:30 | NUR ---
GPS RN NOTES: PATIENT IN BED, AWAKE, ISOLATIVE , WITHDRAWN, UNKEMPT, DISHEVLED AND DISORGANIZED. REALITY ORIENTATION DONE. ENCOURAGED PATIENT TO VERBALIZE FEELINGS AND CONCERNS.PATIENT REFUSED HIS 1999 ZYPREXA MEDICATIONS. EXPLAINED THE NEED TO COMPLY WITH MEDICATIONS BUT PATIENT REFUSED. ENDORSE PATIENT A GPS OVERFLOW PATIENT TO MED SURG FLOOR 2 TO KYLER CATHERINE.
--- NOTE | 2018-10-30 20:35 | NUR ---
MSRN RECEIVED VIA WHEELCHAIR , CALM, BEHAVIOR ACCEPTABLE. PLACED T BED COMFORTABLY, SITTER AT BEDSIDE. PATIENT ON 5250 HOLD. REFSED TO TAKE ANY MEDICATION OF THIS TIME, WILL RECHECK PATIENT LATER. TO CONTINUE.
[2018-10-30] MEDS: DONEPEZIL 5 MG TABLET PO SCH (22:44)
[2018-10-30] MEDS ORDERED: DIPHENOXYLATE HCL/ATROP SULF 1 UDTAB TABLET PO PRN (23:00)
--- NOTE | 2018-10-30 23:08 | NUR ---
MSRN VERBALIZES DIARRHEA 5 TIMES SINCE PATIENT WAS TRANSFERRED. INSTRUCTED PATIENT NOT TO FLUSH, NEED TO CHECK STOOLS EACH TIME HE GOES. LAST BM LOOSE , MUCOID FORMING NOT WATERY. INFORMED MD, ORDERS RECEIVED.
--- NOTE | 2018-10-31 05:23 | NUR ---
MSRN NO MORE DIARRHEA AFTER 1ST DOSE OF LOMOTIL GIVEN. SLEPT WELL SINCE 2AM
--- NOTE | 2018-10-31 07:00 | NUR ---
MSRN REFUSED BLOOD DRAW. ENDORSED TO INCOMING RN
--- NOTE | 2018-10-31 07:43 | NUR ---
MS RN OPENING NOTES RECEIVED PATIENT IN STABLE CONDITION. IN NO APPARENT DISTRESS. BEDSIDE RAILS ARE UPX2. BED IS LOCKED AND LOWERED. CALL LIGHT IS WITHIN REACH. WILL CONTINUE TO MONITOR PATIENT.
[2018-10-31 08:00] VITALS: BP 140/69
[2018-10-31] MEDS: FERROUS SULFATE (325 MG) 325 MG/TAB TABLET PO SCH ×2 (08:22→12:51)
[2018-10-31] MEDS: FAMOTIDINE (20 MG) 20 MG TABLET PO SCH (08:22)
[2018-10-31] MEDS: THIAMINE HCL 100 MG TABLET PO SCH (08:22)
[2018-10-31] MEDS: MULTIVITAMINS,THERAGRAN 1 UDTAB TABLET PO SCH (08:22)
[2018-10-31 08:23] VITALS: BP 140/69
[2018-10-31] MEDS: METOPROLOL SUCCINATE 25 MG TAB.SR.24H PO SCH (08:23)
[2018-10-31] MEDS: OLANZAPINE 2.5 MG TABLET PO SCH ×2 (08:23→12:51)
[2018-10-31] MEDS: DIVALPROEX SODIUM 500 MG TABLET.DR PO SCH ×2 (08:23→12:51)
[2018-10-31] MEDS: DOCUSATE SODIUM 100 MG CAPSULE PO SCH (08:27)
[2018-10-31] MEDS: POLYVINYL ALCOHOL 15 ML BOTTLE EACHEYE SCH ×2 (09:00→12:53)
--- NOTE | 2018-10-31 12:21 | NUR ---
STU called the pt's daughter, Isabela ([phone]), and informed her that the pt is going to be discharged at 1pm and that he understood where he was going and that he was able to sign the paperwork stating the facility's name.
--- NOTE | 2018-10-31 13:24 | NUR ---
MS PIER HAND HELPER NOTES PATIENT DISCHARGED IN STABLE CONDITION. IN NO APPARENT DISTRESS. NO IV LINE ACCESS. ID BAND WAS REMOVED. EXITCARE WAS SIGNED AND PROVIDED TO THE EMT. REPORT GIVEN TO INES BARBER. ALL NEEDS WERE MET. PATIENT ESCORTED OUT OF THE FACILITY VIA AMBULANCE. BELONGINGS WERE CHECKED AND GIVEN TO THE PATIENT.
--- NOTE | 2018-10-31 14:45 | NUR ---
Discharge Note: Pt was discharged to [facility] ([facility]) located at [id number] [place] [id number]; . Pt was transported via [facility] (Trip #[id number]) at 1PM. Pts daughter, Isabela ([phone]), was notified and made aware of this discharge. Upon discharge, the pt appeared to be in a euthymic mood and presented with a flat affect. Pt denied both suicidal and homicidal ideation as well as auditory and visual hallucinations. Pt will be in the care of his psychiatrist, Dr. Spann located at [address] [address], [place] [address], [place] [address]; and his maintenance director, Dr. Bass, located at [address] [facility] [address], [place] [address]; .
== END 2018-10-31 13:24 | DRG 885 ==
LOC: ER 17:56 → GPS 20:24 → GPSOV2 10-30 20:39
PROVIDERS: ADMIT Psychiatry & Neurology Psychosomatic Medicine; ATTEND Psychiatry & Neurology Psychosomatic Medicine
DX: F29 Unspecified psychosis not due to a substance or known physiological condition (principal); F01.50 Vascular dementia, unspecified severity, without behavioral disturbance, psychotic disturbance, mood disturbance, and anxiety; N18.9 Chronic kidney disease, unspecified; N17.0 Acute kidney failure with tubular necrosis; J15.9 Unspecified bacterial pneumonia; G92 Toxic encephalopathy; E44.1 Mild protein-calorie malnutrition; E87.2 Acidosis; I12.9 Hypertensive chronic kidney disease with stage 1 through stage 4 chronic kidney disease, or unspecified chronic kidney disease; M17.0 Bilateral primary osteoarthritis of knee; I25.10 Atherosclerotic heart disease of native coronary artery without angina pectoris; E78.5 Hyperlipidemia, unspecified; F20.0 Paranoid schizophrenia; G40.909 Epilepsy, unspecified, not intractable, without status epilepticus; E83.51 Hypocalcemia; Z68.27 Body mass index [BMI] 27.0-27.9, adult; D63.8 Anemia in other chronic diseases classified elsewhere; I70.90 Unspecified atherosclerosis; E86.9 Volume depletion, unspecified
CPT/HCPCS: 36415; 70450-TC; 71045-TC; 80048-TC; 80053-TC; 80061-TC; 80076-TC; 80305; 81000-TC; 82565-TC; 83540-TC; 83735-TC; 84100-TC; 84443-TC; 85025-TC; 87081-TC; G0480